=== PATIENT | female | born 2000 | race Two or more races ===

== ENCOUNTER 2020-11-30 07:09 | Emergency (ER) | payer SELFPAY ==
[~2020-11-30] VITALS: Ht 154.9 cm; Wt 63.5 kg
--- NOTE | 2020-11-30 07:43 | PHYS DOC ---
Past Medical History Past Medical History: No Pertinent History Past Surgical History: No Surgical History Smoking Status: Never Smoker Alcohol Use: None Drug Use: None General Adult EDM: Chief Complaint: ABDOMINAL PAIN HPI: HPI: 20-year-old female presents with left flank pain for the past 1 week exacerbated over the last 24 hours with gradual increase in pain. She reports it feels like somebody is kicking her in the back, radiates towards the front, not associate with any particular activity. She also reports some burning upon urination for the last week. The patient admits to nausea, denies cough, vomiting, fever, chills, chest pain, shortness of breath or any other complaints. Review of Systems: Review of Systems: Constitutional: Denies fever or chills. Eyes: Denies change in vision, pain. HENT: Denies congestion or sore throat. Respiratory: Denies cough or shortness of breath. Cardiovascular: Denies chest pain or edema. GI: Admits to flank pain and nausea. : Admits to burning upon urination, denies blood. Musculoskeletal: Denies extremity pain, or trauma. Skin: Denies rash, skin change. Neurologic: Denies headache, focal weakness. Psychiatric: Denies depression or anxiety. All other systems reviewed as negative except for what was mentioned in the HPI. Heart Score: C/O Chest Pain: No Family History: Family History: Noncontributory Allergies: Allergies: Allergies Coded Allergies Type Severity Reaction Last Updated Verified No Known Drug Allergies 12/06/19 No Physical Exam: PE: Constitutional: No acute distress, non-toxic appearance. HENT: Atraumatic, bilateral external ears normal, nose normal. Eyes: PERRLA, EOMI, conjunctiva normal, no discharge. Neck: Normal range of motion, supple, no stridor. Cardiovascular: Heart rate regular rhythm. 2+ radial pulses Lungs & Thorax: No respiratory distress, symmetrical expansion. Abdomen: Soft, no tenderness no CVA tenderness Skin: Warm, dry. No overlying skin changes on the flank Extremities: No tenderness, no cyanosis, ROM intact, no edema. Neurologic: Alert and oriented X 3, normal motor function, normal sensory function, no focal deficits noted. Non ataxic gait. GCS 15. Psychologic: Affect normal, judgment normal, mood normal. Current Patient Data: Labs: Laboratory Tests Test 11/30/20 07:32 11/30/20 07:35 11/30/20 08:30 11/30/20 09:45 Urine Collection Type Unknown Urine Color Yellow Urine Clarity Clear Urine pH 7.0 (<5.0-8.0) Urine Specific [place] 1.015 (1.000-1.030) Urine Protein Negative mg/dL (NEG-TRACE) Urine Glucose (UA) Negative mg/dL (NEG) Urine Ketones (Stick) Negative mg/dL (NEG) Urine Blood Negative (NEG) Urine Nitrite Negative (NEG) Urine Bilirubin Negative (NEG) Urine Urobilinogen Dipstick 1.0 mg/dL (0.2 mg/dL) Urine Leukocyte Esterase Small (NEG) Urine RBC 0 /HPF (0-2) Urine WBC 1-4 /HPF (0-4) Urine Squamous Epithelial Cells Mod /LPF Urine Bacteria Few /HPF (0-FEW) Bedside Urine HCG, Qualitative Hcg negative (Negative) White Blood Count 10.3 x10^3/uL (4.0-11.0) Red Blood Count 4.10 x10^6/uL (3.50-5.40) Hemoglobin 11.1 g/dL (12.0-15.5) Hematocrit 33.9 % (36.0-47.0) Mean Corpuscular Volume 83 fL (79-100) Mean Corpuscular Hemoglobin 27 pg (25-35) Mean Corpuscular Hemoglobin Concent 33 g/dL (31-37) Red Cell Distribution Width 14.7 % (11.5-14.5) Platelet Count 345 x10^3/uL (140-400) Neutrophils (%) (Auto) 73 % (31-73) Lymphocytes (%) (Auto) 19 % (24-48) Monocytes (%) (Auto) 7 % (0-9) Eosinophils (%) (Auto) 1 % (0-3) Basophils (%) (Auto) 1 % (0-3) Neutrophils # (Auto) 7.5 x10^3/uL (1.8-7.7) Lymphocytes # (Auto) 1.9 x10^3/uL (1.0-4.8) Monocytes # (Auto) 0.7 x10^3/uL (0.0-1.1) Eosinophils # (Auto) 0.1 x10^3/uL (0.0-0.7) Basophils # (Auto) 0.1 x10^3/uL (0.0-0.2) Sodium Level 137 mmol/L (136-145) Potassium Level 3.6 mmol/L (3.5-5.1) Chloride Level 104 mmol/L (98-107) Carbon Dioxide Level 24 mmol/L (21-32) Anion Gap 9 (6-14) Blood Urea Nitrogen 7 mg/dL (7-20) Creatinine 0.8 mg/dL (0.6-1.0) Estimated GFR (Cockcroft-Gault) 90.5 Glucose Level 123 mg/dL (70-99) Calcium Level 8.2 mg/dL (8.5-10.1) Vital Signs: Vital Signs Date Time Temp Pulse Resp B/P (MAP) Pulse Ox O2 Delivery O2 Flow Rate FiO2 11/30/20 08:45 106/57 (73) 98 11/30/20 07:28 99.0 93 14 128/60 (82) 100 Room Air 99.0 Course & Med Decision Making: Course & Med Decision Making Urine shows evidence for infection, along with flank pain, will treat patient for pyelonephritis at home. Her vital signs are stable there is no signs of sepsis. Counseled return precautions. She looks well upon discharge. Departure Departure Impression: Primary Impression: Pyelonephritis Disposition: 01 HOME / SELF CARE / HOMELESS Condition: STABLE Referrals: NO PCP (PCP) Patient Instructions: Pyelonephritis, Adult Additional Instructions: You were seen for a urinary tract infection. Please continue to take the antibiotics as prescribed. You should return to the ED if you develop worsening pain, fever, flank pain, inability to eat or drink, or any other new or concerning symptoms. You have been given a prescription for Keflex. This medicine is an antibiotic for pyelonephritis. Please take as prescribed for the full course of the prescription. Do not stop taking the medicine early if you feel better, as this could risk building antibiotic resistance and may put you at risk for a more harmful infection later. The most common side effect of antibiotics include nausea, vomiting, diarrhea and rash. Please come to be evaluated if you develop any symptoms that are concerning to you. One major adverse effect of antibiotics is the development of a diarrheal illness called c. diff colitis, if you develop an excessive amount of diarrhea or are concerned about this please return to the ER or consult a physician. Scripts Cephalexin (CEPHALEXIN) 500 Mg Tablet 1 TAB PO BID, #20 TAB Prov: ESTEFANI CANAS DO 11/30/20 ESTEFANI CANAS DO Nov 30, 2020 07:43
[2020-11-30] MEDS ORDERED: ONDANSETRON ODT 4 MG TAB.RAPDIS. PO ONE (07:45)
[2020-11-30 08:01] LABS: BILIRUBIN,URINE NEGATIVE (NEG); CLARITY,URINE CLEAR; COLOR,URINE YELLOW; NITRITE,URINE NEGATIVE (NEG); PROTEIN,URINE NEGATIVE (NEG-TRACE)
[2020-11-30 08:08] LABS: BACTERIA,URINE FEW /HPF (0-FEW); RBC,URINE 0 /HPF (0-2)
[2020-11-30] MEDS ORDERED: KETOROLAC 15 MG/ML VIAL. IM ONE (09:00)
[2020-11-30 09:36] LABS: BASO # 0.1 x10^3/uL (0.0-0.2); BASO % 1 % (0-3); EOS # 0.1 x10^3/uL (0.0-0.7); EOS % 1 % (0-3); HEMATOCRIT 33.9 % (36.0-47.0); HEMOGLOBIN 11.1 g/dL (12.0-15.5); LYMPH # 1.9 x10^3/uL (1.0-4.8); LYMPH % 19 % (24-48); MEAN CORPUSCULAR HEMOGLOBIN 27 pg (25-35); MEAN CORPUSCULAR HGB CONC 33 g/dL (31-37); MEAN CORPUSCULAR VOLUME 83 fL (79-100); MONO # 0.7 x10^3/uL (0.0-1.1); MONO % 7 % (0-9); NEUT # 7.5 x10^3/uL (1.8-7.7); NEUT % 73 % (31-73); PLATELET COUNT 345 x10^3/uL (140-400); RED CELL DISTRIBUTION WIDTH 14.7 % (11.5-14.5); WHITE BLOOD COUNT 10.3 x10^3/uL (4.0-11.0)
[2020-11-30 10:01] LABS: CALCIUM 8.2 mg/dL (8.5-10.1); CREATININE 0.8 mg/dL (0.6-1.0); GFR 90.5; POTASSIUM 3.6 mmol/L (3.5-5.1)
[2020-11-30] MEDS ORDERED: CEPH500T PO (10:06)
[2020-11-30 10:40] VITALS: BP 107/62
== END 2020-11-30 10:46 | disposition home or self-care (01) ==
LOC: ER 07:09
DX: N12 Tubulo-interstitial nephritis, not specified as acute or chronic (principal)
CPT/HCPCS: 36415; 80048; 81001; 81025; 85025; 87086; 96372; 99283; J1885